=== PATIENT | male | born 1970 | race Hispanic/Latino ===

== ENCOUNTER 2022-05-07 16:43 | Emergency (ER) | payer SELFPAY ==
[~2022-05-07] VITALS: Ht 172.7 cm; Wt 79.1 kg
[2022-05-07] VITALS (9 sets, daily range): BP systolic 105–141; BP diastolic 75–98
[2022-05-07 18:05] LABS: HEMATOCRIT 44.8 % (39.0-50.0); HEMOGLOBIN 15.4 g/dl (14.0-18.0); IMMATURE GRANULOCYTES 0.3 % (0.0-5.0); MEAN CELL VOLUME 97.6 fL CALC (80.0-100.0); MEAN CORPUSCULAR HGB 33.6 pG CALC (26.0-32.0); MEAN CORPUSCULAR HGB CONC 34.4 g/dL CAL (32.0-36.0); NEUT# 4.36 thou/uL (1.82-7.42); RED BLOOD COUNT 4.59 mill/uL (4.70-6.10); RED CELL DISTRI WIDTH 11.9 % (11.5-15.5)
[2022-05-07 18:18] LABS: ALBUMIN 4.9 g/dL (3.2-5.0); ALKALINE PHOSPHATASE 51 u/l (38-126); ANION GAP 19 (6-22 (CALC)); BILIRUBIN, TOTAL 0.5 mg/dL (0.0-1.4); BUN 12 mg/dL (9-20); BUN/CREATININE RATIO 11 (12-20 (CALC)); CARBON DIOXIDE 21 mmol/l (22-30); CHLORIDE 104 mmol/l (95-108); CREATININE 1.1 mg/dL (0.7-1.3); GFR FOR AFR.AMER. > 60 ML/MIN (>=60 (CALC)); GFR OTHER RACES > 60 ML/MIN (>=60 (CALC)); LIPASE 161 u/l (23-300); POTASSIUM 3.6 mmol/l (3.5-5.1); SGOT/AST 34 u/l (17-59); SODIUM 140 mmol/l (137-146); TOTAL PROTEIN 8.2 g/dL (6.3-8.2)
[2022-05-07 18:21] LABS: MAGNESIUM 2.3 mg/dL (1.6-2.3)
[2022-05-07 18:34] LABS: MYOGLOBIN 26 ng/mL (0 - 121)
[2022-05-07 18:59] LABS: URINE BILIRUBIN - DIPSTICK NEGATIVE (NEGATIVE); URINE BLOOD DIPSTICK NEGATIVE (NEGATIVE); URINE COLOR YELLOW; URINE GLUCOSE - DIPSTICK NEGATIVE (NEGATIVE); URINE KETONE NEGATIVE (NEGATIVE); URINE LEUK ESTERASE NEGATIVE (NEGATIVE); URINE PROTEIN - DIPSTICK NEGATIVE (NEG-TRACE); URINE UROBILINOGEN - DIPSTICK 0.2 E.U./dL (0.2)
[2022-05-07 19:01] LABS: URINE NITRITE - DIPSTICK NEGATIVE (Negative)
[2022-05-07] MEDS ORDERED: OMEPRAZOLE20 MG PO (20:09)
== END 2022-05-07 20:35 | disposition home or self-care (01) | DRG 392 ==
LOC: ED 16:43
PROVIDERS: Family Medicine
DX: K29.70 Gastritis, unspecified, without bleeding (principal)
CPT/HCPCS: S0164

== ENCOUNTER 2022-08-14 10:17 | Emergency (ER) | payer SELFPAY ==
[~2022-08-14] VITALS: Ht 172.7 cm; Wt 81.6 kg
[~2022-08-14 10:17] MED LIST: OMEPRAZOLE20 MG PO
[2022-08-14] MEDS ORDERED: DECADRON4 MG PO (10:35)
[2022-08-14] MEDS ORDERED: NEURONTIN300 MG PO (10:37)
[2022-08-14 11:19] VITALS: BP 127/80
== END 2022-08-14 11:19 | disposition home or self-care (01) | DRG 552 ==
LOC: ED 10:17
DX: M54.32 Sciatica, left side (principal); F17.210 Nicotine dependence, cigarettes, uncomplicated